=== PATIENT | female | born 1965 | race Caucasian/White ===

== ENCOUNTER 2017-05-26 13:57 | Emergency (ER) | payer SELFPAY ==
[~2017-05-26] VITALS: Ht 165.1 cm; Wt 76.3 kg
[~2017-05-26 13:57] MED LIST: ADVIL200 MG PO; AMLODIPINE BESYL5 MG PO; ESTRADIOL 0.075 MG TD; METOPROLOL TART25 MG PO
[2017-05-26] MEDS ORDERED: PERCOCET 5/31 TABLET PO (15:34)
[2017-05-26] MEDS ORDERED: ULTRAM50 MG PO (16:03)
[2017-05-26 16:05] VITALS: BP 154/79
== END 2017-05-26 16:06 | disposition home or self-care (01) ==
LOC: EME 13:57
PROC: 2W39X1Z Immobilization of Left Upper Extremity using Splint (ICD-10-PCS; principal; 2017-05-26)
DX: S50.12XA Contusion of left forearm, initial encounter (principal); S46.812A Strain of other muscles, fascia and tendons at shoulder and upper arm level, left arm, initial encounter; V19.9XXA Pedal cyclist (driver) (passenger) injured in unspecified traffic accident, initial encounter; Y93.55 Activity, bike riding; I10 Essential (primary) hypertension; Z88.8 Allergy status to other drugs, medicaments and biological substances
CPT/HCPCS: 73090; 99281; 99283

== ENCOUNTER 2017-09-13 20:41 | Emergency (ER) | payer SELFPAY ==
[~2017-09-13] VITALS: Ht 167.6 cm; Wt 78.2 kg
[~2017-09-13 20:41] MED LIST changes: +PERCOCET 5/31 TABLET PO; +ULTRAM50 MG PO
[2017-09-13 21:29] LABS: HEMATOCRIT 45.3 % (36.0-46.0); HEMOGLOBIN 15.3 G/DL (11.9-15.5); MCH 29.8 PG (29.0-34.0); MCHC 33.8 G/DL (30.0-36.0); MCV 88.1 FL (83-99); PLATELET COUNT 245 K/uL (156-360); RBC DIS.WIDTH-CV 12.5 % (11.8-14.6); RBC DIS.WIDTH-SD 40.8 % (39-53); RED BLOOD COUNT 5.14 M/uL (3.80-5.20); WHITE BLOOD COUNT 9.2 K/uL (4.1-10.2)
[2017-09-13 21:37] LABS: ALBUMIN 4.5 g/dL (3.2-4.8); CHLORIDE 106 mEq/L (99-109); POTASSIUM 4.2 mEq/L (3.7-5.4); SODIUM 138 mEq/L (136-147)
[2017-09-13 21:39] LABS: GLUCOSE 90 mg/dL (70-99); TOTAL PROTEIN 8.1 g/dL (6.4-8.3)
[2017-09-13 21:41] LABS: TOTAL BILIRUBIN 0.9 mg/dL (0.0-1.0)
[2017-09-13 21:43] LABS: ALKALINE PHOSPHATASE 238 IU/L (3-129); CREATININE 0.8 mg/dL (0.6-1.3); GFR ESTIMATE (CALCULATED) > 59 mL/min/
[2017-09-13 21:44] LABS: UREA NITROGEN (BUN) 14 mg/dL (9-23)
[2017-09-13 21:45] LABS: AST (GOT) 456 IU/L (2-34)
[2017-09-13 21:46] LABS: ALT (GPT) 449 IU/L (3-49); LIPASE 36 U/L (1.0-51.0)
[2017-09-13 21:54] LABS: QUANTITATIVE HCG < 4.0 MIU/ML
[2017-09-13 22:13] LABS: APPEARANCE CLEAR ((CLEAR)); BILIRUBIN NEGATIVE; BLOOD NEGATIVE; COLOR YELLOW ((YELLOW)); GLUCOSE (STRIP) NEGATIVE; KETONES NEGATIVE; LEUKOCYTES LARGE; NITRITE NEGATIVE; PROTEIN (STRIP) NEGATIVE; SPECIFIC GRAVITY 1.008 (1.000-1.030); UROBILINOGEN 0.2 MG/DL (0.2-1.0)
[2017-09-13 22:25] LABS: BACTERIA 1+ /HPF; EPITHELIAL CELLS 1+ /HPF; MUCUS NONE SEEN /LPF; RED BLOOD CELLS 0-5 /HPF (0-5); UCUL ADDED? YES
[2017-09-14 02:43] VITALS: BP 141/101
== END 2017-09-14 02:45 | disposition home or self-care (01) ==
LOC: EME 20:41
DX: R10.13 Epigastric pain (principal); R74.0 Nonspecific elevation of levels of transaminase and lactic acid dehydrogenase [LDH]; I10 Essential (primary) hypertension; Z90.49 Acquired absence of other specified parts of digestive tract; Z88.5 Allergy status to narcotic agent; Z88.6 Allergy status to analgesic agent
CPT/HCPCS: 74176; 76705; 80053; 81003; 83690; 84702; 85027; 87086; 99281; 99284